=== PATIENT | male | born 1995 | race Caucasian/White ===

== ENCOUNTER 2021-11-11 06:09 | Day surgery (SDC) | payer SELFPAY ==
[2021-11-09 10:19] VITALS: BMI 28.2
[2021-11-11] MEDS ORDERED: LIDOCAINE HCL 2% (20ML MULTI-DOSE VIAL) ONE ×2 (07:06→07:39)
[2021-11-11] MEDS ORDERED: BUPIVACAINE HCL/EPINEPHRINE/PF 30 ML VIAL IJ ONE (07:07)
[2021-11-11] MEDS ORDERED: EPINEPHrine/PF 1 MG/1 ML (1:1,000) AMPULE ONE ×2 (07:07→07:39)
[2021-11-11] MEDS ORDERED: SODIUM BICARBONATE 8.4% 50 MEQ/50 ML VIAL ONE (07:20)
[2021-11-11] MEDS ORDERED: MIDAZOLAM HCL 2 MG/2 ML SINGLE DOSE VIAL ONE ×2 (07:29→07:43)
[2021-11-11] MEDS ORDERED: PROPOFOL 20 ML ONE ×2 (07:29→09:20)
[2021-11-11] MEDS ORDERED: DEXAMETHASONE SOD PHOSPHATE 4 MG/1 ML VIAL ONE (07:43)
[2021-11-11] MEDS ORDERED: ONDANSETRON 4 MG/2 ML VIAL ONE (07:43)
[2021-11-11] MEDS ORDERED: ceFAZolin SODIUM 1 GM VIAL ONE (07:43)
[2021-11-11] MEDS ORDERED: ROCURONIUM BROMIDE 50 MG/5 ML SYRINGE ONE (07:43)
[2021-11-11] MEDS ORDERED: SCOPOLAMINE HYDROBROMIDE 1 PATCH PATCH.TD72 ONE (07:48)
[2021-11-11] MEDS ORDERED: DESFLURANE GAS 240 ML BOTTLE IH ONE (08:43)
[2021-11-11] MEDS ORDERED: NEOSTIGMINE METHYLSULFATE 0.5 MG/1 ML - 10 ML MDV ONE (09:17)
[2021-11-11] MEDS ORDERED: PROMETHAZINE HCL 25 MG/1 ML VIAL IVPUSH PRN (09:55)
[2021-11-11] MEDS ORDERED: oxyCODONE HCL 5 MG TABLET PO PRN ×2 (09:55)
[2021-11-11] MEDS ORDERED: ONDANSETRON 4 MG/2 ML VIAL IVPUSH PRN ×2 (09:55→10:22)
[2021-11-11] MEDS ORDERED: FENTANYL CITRATE/PF 50 MCG/ML VIAL ONE (10:13)
[2021-11-11] MEDS ORDERED: ACETAMINOPHEN 325 MG TABLET (FP) PO PRN (10:22)
[2021-11-11] MEDS ORDERED: LACTATED RINGERS SOLUTION 1,000 ML IV SCH (10:30)
[2021-11-11 10:32] VITALS: RESP 16
[2021-11-11] MEDS ORDERED: PROMETHAZINE HCL 25 MG/1 ML VIAL ONE (10:53)
[2021-11-11 11:10] VITALS: TEMP 98.8
[2021-11-11 12:12] VITALS: PULSE 88
[2021-11-11 13:25] VITALS: BP 92/70
== END 2021-11-11 13:15 | disposition home or self-care (01) ==
LOC: FASU 06:09 → FM/S 10:22 → UNDOADMIN 10:22 → FASU 13:15
PROVIDERS: ATTEND Plastic Surgery
CPT/HCPCS: 94760